=== PATIENT | male | born 1995 | race Caucasian/White ===

== ENCOUNTER 2017-05-22 15:58 | Emergency (ER) | payer OTHER ==
[2017-05-22 16:31] VITALS: BMI 24.3
[2017-05-22] MEDS ORDERED: Naproxen 550 mg Tab PO STA (17:15)
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
[2017-05-22] MEDS ORDERED: Naproxen 550 mg Tab PO ONE (18:03)
[2017-05-22 18:24] VITALS: BP 114/68; PULSE 72; RESP 18; TEMP 98.3; O2SAT 100
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
--- NOTE | 2017-05-22 18:57 | RAD ---
PROCEDURE: Cervical spine 05/22/2017 Three views of the cervical spine performed. Note that the examination is limited due to obscuration of the odontoid by overlying occiput in the open-mouth projection HISTORY: Pain. COMPARISON: No prior study available for comparison FINDINGS: BONES: No acute compression fractures no retropulsed fragments. Minor chronic anterior stature loss of the C5 and C6 segments. Vertebral bodies otherwise exhibit normal stature. . Vertebral bodies and facets normally aligned DISC SPACES: Disc space heights relatively maintained. SOFT TISSUES: Normal. No prevertebral soft tissue swelling. OTHER FINDINGS: None. IMPRESSION: Slightly limited study as described. No acute fractures. If symptoms persist, occult fracture, ligamentous or cord injury suspected clinically consider followup MRI.
== END 2017-05-22 18:24 | disposition home or self-care (01) ==
LOC: C.ER 15:58
DX: S13.4XXA Sprain of ligaments of cervical spine, initial encounter (principal); S23.3XXA Sprain of ligaments of thoracic spine, initial encounter; V89.2XXA Person injured in unspecified motor-vehicle accident, traffic, initial encounter